=== PATIENT | female | born 1950 | race Caucasian/White ===

== ENCOUNTER 2018-03-25 11:54 | Inpatient (IN) | payer BC, MEDICARE ==
[~2018-03-25] VITALS: Ht 160 cm; Wt 53.7 kg
[2018-03-25] MEDS ORDERED: SODIUM CHLORIDE 0.9% 1,000 ML IVB ONE (12:00)
[2018-03-25 12:51] LABS: Basophils # (auto) 0 uL; Basophils % (auto) 0.7 % (0.0-2.0); Eosinophils # (auto) 0.1 uL; Eosinophils % (auto) 1.3 % (0.0-7.0); Hemoglobin 10.4 g/dL (12.2-16.2); Lymphocytes # (auto) 2.3 uL; Lymphocytes % (auto) 39.5 % (10.0-50.0); Mean Corpuscular Hemoglobin 33.6 pg (28.0-32.0); Mean Corpuscular Hgb Conc. 33.7 g/dL (32.0-36.0); Mean Corpuscular Volume 99.6 fL (80.0-100.0); Monocytes # (auto) 0.4 uL; Monocytes % (auto) 6.8 % (0.0-12.0); Neutrophils % (auto) 51.7 % (37.0-80.0); Nucleated Red Blood Cells % 0.1 %; Platelet Count (auto) 150 10^3/uL (140-450); Red Blood Cells 3.11 10^6/uL (4.0-5.20); Red Cell Distribution Width 13.4 % (11.8-14.3); White Blood Cell 5.8 10^3/uL (4.4-10.8)
[2018-03-25 13:00] LABS: INR 1.02 (0.9-1.15); Prothrombin Time 10.9 sec (9.27-12.13)
[2018-03-25 13:29] LABS: Alanine Aminotransferase 22 U/L (13-56); Albumin 3.7 g/dL (3.4-5.0); Alkaline Phosphatase 78 U/L (45-117); Anion Gap 10 (5-15); Aspartate Aminotransferase 23 U/L (15-37); BUN/Creatinine Ratio 12.6; Bilirubin, Total 0.5 mg/dL (0.2-1.0); Blood Urea Nitrogen 26 mg/dL (7-18); Calcium 8.9 mg/dL (8.5-10.1); Carbon Dioxide 24 mmol/L (21-32); Chloride 106 mmol/L (98-107); GFR African American 31 mL/min; GFR Non-African American 26 mL/min; Glucose 159 mg/dL (74-106); Magnesium 1.9 mg/dL (1.6-2.6); Potassium 4.2 mmol/L (3.5-5.1); Sodium 140 mmol/L (136-145); Total Protein 7.3 g/dL (6.4-8.2)
[2018-03-25] MEDS ORDERED: MORPHINE SULF INJ 2 MG/ML SYRINGE 1ML IV PRN (14:30)
[2018-03-25] MEDS ORDERED: cefTRIAXone 1GM/10ml IVPUSH 10 ML IV ONE (14:30)
[2018-03-25] MEDS ORDERED: NITROGLYCERIN 0.4 MG SL TAB SL PRN (14:30)
[2018-03-25] MEDS: SODIUM CHLORIDE 0.9% 1,000 ML IV SCH (15:27)
[2018-03-25] MEDS ORDERED: TACR1CAP4 PO (15:45)
[2018-03-25] MEDS ORDERED: SERT25TA84 PO (15:45)
[2018-03-25] MEDS ORDERED: TACR0.5C3 PO (15:52)
[2018-03-25] MEDS ORDERED: TACROLIMUS 0.5 MG PO SCH (18:00)
[2018-03-25] MEDS ORDERED: ALPR0.5T PO (20:37)
[2018-03-25] MEDS ORDERED: ONDA4TAB5 PO (20:37)
[2018-03-25 22:00] VITALS: BP 99/65
[2018-03-25] MEDS: TACROLIMUS 0.5 MG PO SCH (22:32)
[2018-03-26 01:03] LABS: Urine Bacteria NONE SEEN /hpf (None Seen); Urine Blood Negative /uL (Negative); Urine Specific Gravity 1.009 (1.001-1.035); Urine WBC 2 /hpf (0 - 5)
[2018-03-26 04:49] VITALS: BP 126/78
[2018-03-26 05:27] LABS: Basophils # (auto) 0 uL; Basophils % (auto) 0.3 % (0.0-2.0); Eosinophils # (auto) 0.1 uL; Eosinophils % (auto) 1.3 % (0.0-7.0); Hemoglobin 9.8 g/dL (12.2-16.2); Mean Corpuscular Hgb Conc. 34.4 g/dL (32.0-36.0); Neutrophils # (auto) 2.7 uL; Nucleated Red Blood Cells % 0.1 %
[2018-03-26 05:29] LABS: Hematocrit 28.5 % (36.0-46.0); Lymphocytes # (auto) 1.9 uL; Lymphocytes % (auto) 37.3 % (10.0-50.0); Mean Corpuscular Hemoglobin 34.3 pg (28.0-32.0); Mean Corpuscular Volume 99.8 fL (80.0-100.0); Monocytes # (auto) 0.4 uL; Monocytes % (auto) 8.2 % (0.0-12.0); Neutrophils % (auto) 52.9 % (37.0-80.0); Platelet Count (auto) 139 10^3/uL (140-450); Red Blood Cells 2.85 10^6/uL (4.0-5.20); Red Cell Distribution Width 13.6 % (11.8-14.3); White Blood Cell 5.1 10^3/uL (4.4-10.8)
[2018-03-26 05:51] LABS: Calcium 8.7 mg/dL (8.5-10.1)
[2018-03-26 05:59] LABS: Potassium 5.7 mmol/L (3.5-5.1)
[2018-03-26] MEDS ORDERED: SODIUM POLYSTYRENE SULF 15GM/60ML SUSP PO ONE (06:15)
[2018-03-26] MEDS: SODIUM CHLORIDE 0.9% 1,000 ML IV SCH ×3 (06:38→20:30)
[2018-03-26 09:00] VITALS: BP 144/76
[2018-03-26] MEDS: SERTRALINE HCL 50 MG TAB PO SCH (09:24)
[2018-03-26] MEDS: cefTRIAXone 1GM/10ml IVPUSH 10 ML IV SCH (09:25)
[2018-03-26] MEDS ORDERED: MULT-228 PO (09:46)
[2018-03-26] MEDS ORDERED: SODIPOW6 PO (09:46)
[2018-03-26] MEDS ORDERED: PANT40TA2 PO (09:46)
[2018-03-26] MEDS ORDERED: TACR1CAP4 PO (09:46)
[2018-03-26] MEDS ORDERED: TRAM50TA2 PO (09:46)
[2018-03-26] MEDS ORDERED: DEXTROSE (50%) 50ML SYRG IV ONE (10:30)
[2018-03-26] MEDS ORDERED: InsuLIN REG 1unit/0.01ml Soln (100units/ml) IV ONE (10:30)
[2018-03-26] MEDS ORDERED: LORazepam 2MG/ML-1ML VIAL IV ONE (10:30)
[2018-03-26] MEDS: ONDANSETRON HCL 4 MG/2 ML VIAL IV PRN ×2 (10:51→18:48)
[2018-03-26] MEDS: TACROLIMUS 1 MG CAP PO SCH (11:09)
[2018-03-26 12:00] VITALS: BP 126/77
[2018-03-26] MEDS ORDERED: ALPRAZolam 0.25 MG TAB PO PRN (13:45)
[2018-03-26 16:00] VITALS: BP 133/82
[2018-03-26 16:00] LABS: BUN/Creatinine Ratio 15.5; Calcium 8.4 mg/dL (8.5-10.1); Potassium 4.5 mmol/L (3.5-5.1)
[2018-03-26] MEDS ORDERED: HYDROcodone-ACET 5/325MG TAB PO PRN (17:45)
[2018-03-26 20:15] LABS: BUN/Creatinine Ratio 13.9; Calcium 8.5 mg/dL (8.5-10.1)
[2018-03-26 20:58] LABS: Potassium 4.4 mmol/L (3.5-5.1)
[2018-03-26 22:00] VITALS: BP 142/95
[2018-03-26] MEDS: TACROLIMUS 0.5 MG PO SCH (22:30)
[2018-03-27 05:01] VITALS: BP 119/68
[2018-03-27] MEDS ORDERED: ACETAMINOPHEN 325 MG TAB PO ONE (05:45)
[2018-03-27 06:10] LABS: Eosinophils # (auto) 0.1 uL; Hemoglobin 10.2 g/dL (12.2-16.2); Lymphocytes # (auto) 2.5 uL; Monocytes # (auto) 0.4 uL; Red Blood Cells 2.98 10^6/uL (4.0-5.20); Red Cell Distribution Width 12.9 % (11.8-14.3)
[2018-03-27 06:12] LABS: Basophils # (auto) 0 uL; Basophils % (auto) 0.3 % (0.0-2.0); Eosinophils % (auto) 1.2 % (0.0-7.0); Hematocrit 29.3 % (36.0-46.0); Lymphocytes % (auto) 40.7 % (10.0-50.0); Mean Corpuscular Hemoglobin 34.1 pg (28.0-32.0); Mean Corpuscular Hgb Conc. 34.8 g/dL (32.0-36.0); Mean Corpuscular Volume 98.1 fL (80.0-100.0); Neutrophils # (auto) 3.1 uL; Neutrophils % (auto) 50.8 % (37.0-80.0); Nucleated Red Blood Cells % 0.1 %; Platelet Count (auto) 140 10^3/uL (140-450)
[2018-03-27] MEDS: SODIUM CHLORIDE 0.9% 1,000 ML IV SCH (06:16)
[2018-03-27 06:23] LABS: INR 1.01 (0.9-1.15); Partial Thromboplastin Time 22.4 sec (23.78-33.04); Prothrombin Time 10.8 sec (9.27-12.13)
[2018-03-27 06:25] LABS: BUN/Creatinine Ratio 12.7; Calcium 8.9 mg/dL (8.5-10.1); Potassium 4.5 mmol/L (3.5-5.1)
[2018-03-27 07:49] VITALS: BP 131/85
[2018-03-27] MEDS: cefTRIAXone 1GM/10ml IVPUSH 10 ML IV SCH (08:54)
[2018-03-27] MEDS: SERTRALINE HCL 50 MG TAB PO SCH (08:54)
[2018-03-27] MEDS ORDERED: LEVO250T45 PO (10:51)
[2018-03-27] MEDS ORDERED: LEVOFLOXACIN 500 MG TAB PO ONE (11:00)
[2018-03-27] MEDS: TACROLIMUS 1 MG CAP PO SCH (11:24)
[2018-03-27 12:42] VITALS: BP 144/83
[2018-03-27 13:02] VITALS: BP 144/83
[2018-03-27] MEDS: ONDANSETRON HCL 4 MG/2 ML VIAL IV PRN (13:03)
== END 2018-03-27 14:40 | disposition home or self-care (01) | DRG 683 ==
LOC: EDBD 11:54 → ER 11:54 → TELE 11:55 → TELE-WESTW 18:53
PROVIDERS: ADMIT Internal Medicine; ATTEND Internal Medicine
DX: N17.9 Acute kidney failure, unspecified (principal); N39.0 Urinary tract infection, site not specified; Z94.4 Liver transplant status; N18.3 Chronic kidney disease, stage 3 (moderate); F32.9 Major depressive disorder, single episode, unspecified; E16.2 Hypoglycemia, unspecified; E86.0 Dehydration; F41.9 Anxiety disorder, unspecified; K74.60 Unspecified cirrhosis of liver; Z90.710 Acquired absence of both cervix and uterus; Z90.49 Acquired absence of other specified parts of digestive tract; Z88.5 Allergy status to narcotic agent; Z88.2 Allergy status to sulfonamides; Z91.041 Radiographic dye allergy status
CPT/HCPCS: 36415; 70450; 70551; 71045; 80048; 80053; 81001; 82962; 83735; 84484; 85025; 85610; 85730; 93005; 93306; 93886; 94761; 96361; 96374; 96376; J0696; J1815; J2405; J7507